=== PATIENT | male | born 1980 | race Caucasian/White ===

== ENCOUNTER 2019-03-17 10:44 | Day surgery (SDC) | payer OTHER ==
[2019-03-12 14:20] VITALS: BMI 26.4
[~2019-03-17 10:44] MED LIST: LACTATED RINGERS 1,000 ML IV SCH; LIDOCAINE 1% 20 ML VIAL (10MG/ML) FOR IV START INTRADERMA PRN
[2019-03-17 11:52] VITALS: TEMP 97.8
[2019-03-17] MEDS ORDERED: PROPOFOL 10 MG/ML 20 ML VIAL IV ONE (13:16)
[2019-03-17] MEDS ORDERED: LIDOCAINE 1% INJ 10MG/ML (20 ML MDV) ONE (13:16)
--- NOTE | 2019-03-17 13:53 | P.PCN ---
Date of Procedure: 03/17/19 Description of Procedure: Brief history: Patient is a pleasant scheduled for an elective upper endoscopy as well as colonoscopy as a part of evaluation of anemia and diarrhea. The patient reports a history of anemia currently on iron therapy. He also reports frequent loose stool and blood per rectum. He states he was diagnosed with ulcerative colitis at the [facility] done on recent colonoscopy was told he did not have ulcerative colitis. Procedure performed: Esophagogastroduodenoscopy with biopsy Colonoscopy Estimated blood loss: Minimal. Preoperative diagnosis: Anemia, diarrhea Anesthesia: [facility] [place] Procedure: After informed consent was obtained from the patient was brought into the en doscopy unit and IV sedation was administered by anesthesia under continuous monitoring. Initially upper endoscopy was done. The Olympus GF 190 video endoscope was inserted into the mouth and esophagus intubated without any difficulty and was gradually advanced into the stomach and duodenum and carefully examined. The bulb and second part of the duodenum appeared normal, with biopsies taken to rule out celiac sprue. The scope was then withdrawn into the stomach adequately insufflated with air and upon careful examination the antrum and body, cardia and fundus appeared normal, with mild punctate erythema suggestive of mild gastritis with biopsies taken. The scope was then withdrawn into the esophagus. The GE junction was located at 38 cm to the incisors with biopsies taken. A 4 cm hiatal hernia noted. It appeared regular with no erythema erosions or ulcerations. Rest of the esophagus appeared normal. Patient tolerated the procedure well. At this time the patient continued to remain sedation. Initial digital rectal examination was normal. Olympus CF 190 video colonoscope was then inserted into the rectum and gradually advanced to the cecum without any difficulty. Careful examination was performed as the scope was gradually being withdrawn. The prep was excellent. The cecum, ascending colon, transverse colon, descending colon, sigmoid colon and rectum appeared normal, with biopsies taken of the left colon, transverse colon, descending colon and rectum given reported history of ulcerative colitis. 2 diminutive 1 mm sigmoid polyps removed with cold forcep polypectomy. Normal-appearing terminal ileum with biopsies. Retroflexion was performed in the rectum and no lesions were noted, low-grade internal hemorrhoids noted. Patient tolerated the procedure well. Impression: 1. Mild gastritis antrum body, biopsied. Biopsies of the duodenum and GE junction. Moderate size hiatal hernia. 2. Normal-appearing colon from rectum to cecum and normal-appearing terminal ileum with random biopsies taken of the terminal ileum, right colon, transverse colon, left colon and rectum. 2 diminutive 1 mm sigmoid polyps removed with cold forcep polypectomy (suspicion for hyperplastic polyps). Low-grade internal hemorrhoids. Recommendations: Findings of this examination were discussed with the patient as well as his . Await pathology from biopsies. Follow up in gastroenterology clinic as previously scheduled. Continue current medical management.
[2019-03-17 14:08] VITALS: BP 112/84; PULSE 85; RESP 18
== END 2019-03-17 14:35 | disposition home or self-care (01) ==
LOC: ORWHC2ENDO 10:44
PROVIDERS: ATTEND Internal Medicine
DX: K29.51 Unspecified chronic gastritis with bleeding (principal); K22.8 Other specified diseases of esophagus; K62.89 Other specified diseases of anus and rectum; K44.9 Diaphragmatic hernia without obstruction or gangrene; K63.5 Polyp of colon; K64.8 Other hemorrhoids; D64.9 Anemia, unspecified; R19.7 Diarrhea, unspecified; K21.9 Gastro-esophageal reflux disease without esophagitis; F17.210 Nicotine dependence, cigarettes, uncomplicated; Z79.891 Long term (current) use of opiate analgesic; Z79.899 Other long term (current) drug therapy; Z90.49 Acquired absence of other specified parts of digestive tract; Z87.19 Personal history of other diseases of the digestive system; Z98.890 Other specified postprocedural states
CPT/HCPCS: 88305; 45380; 43239; J2001; J2704